=== PATIENT | female | born 1985 | race Caucasian/White ===

== ENCOUNTER 2018-09-15 09:22 | Outpatient (CLI) | END 2018-09-15 11:01 | disposition home or self-care (01) ==

== ENCOUNTER 2018-09-21 17:39 | Outpatient (CLI) | END 2018-09-21 23:32 | disposition home or self-care (01) ==

== ENCOUNTER 2018-09-23 10:12 | Outpatient (CLI) | END 2018-09-23 13:10 | disposition home or self-care (01) ==

== ENCOUNTER 2018-09-25 09:25 | Inpatient (IN) | END 2018-09-28 19:04 | disposition home or self-care (01) | DRG 786 ==